=== PATIENT | male | born 1990 | race Caucasian/White ===

== ENCOUNTER 2020-06-25 09:52 | Emergency (ER) | payer OTHER ==
[2020-06-25 10:00] VITALS: RESP 18
--- NOTE | 2020-06-25 10:13 | ED ---
Male Urogenital HPI - General Chief complaint: Urogenital Stated complaint: Male , Swollen Time Seen by Provider: 06/25/20 10:07 Source: patient, family, RN notes reviewed Mode of arrival: ambulatory Limitations: no limitations - History of Present Illness Initial comments: This a 30-year-old male presents emergency department with chief complaint of scrotal swelling. Patient states started back in December has progressively worsened. He has no associated pain no dysuria no hematuria. Patient states that his never had anything like this in the past. Patient has no concerns for STD infection. Patient has no abdominal pain. Patient denies any trauma. - Related Data Home Medications Medication Instructions Recorded Confirmed No Known Home Medications 04/09/14 04/09/14 Allergies Allergy/AdvReac Type Severity Reaction Status Date / Time No Known Allergies Allergy Verified 06/25/20 10:00 Review of Systems ROS Statement: Those systems with pertinent positive or pertinent negative responses have been documented in the HPI. ROS Other: All systems not noted in ROS Statement are negative. Past Medical History Past Medical History: No Reported History History of Any Multi-Drug Resistant Organisms: None Reported Past Surgical History: Orthopedic Surgery Additional Past Surgical History / Comment(s): wrist, Right knee Past Psychological History: No Psychological Hx Reported Smoking Status: Never smoker Past Alcohol Use History: Daily Past Drug Use History: None Reported General Exam Limitations: no limitations General appearance: alert, in no apparent distress Head exam: Present: atraumatic, normocephalic, normal inspection Respiratory exam: Present: normal lung sounds bilaterally. Absent: respiratory distress, wheezes, rales, rhonchi, stridor Cardiovascular Exam: Present: regular rate, normal rhythm, normal heart sounds. Absent: systolic murmur, diastolic murmur, rubs, gallop, clicks GI/Abdominal exam: Present: soft, normal bowel sounds. Absent: distended, tenderness, guarding, rebound, rigid exam: Present: scrotal swelling (Significant swelling noted). Absent: normal inspection, testicular tenderness Back exam: Absent: CVA tenderness (R), CVA tenderness (L) Skin exam: Present: warm, dry, intact, normal color. Absent: rash Course Vital Signs 06/25/20 09:55 Temperature 98.7 F Pulse Rate 65 Respiratory 18 Rate Blood Pressure 121/81 O2 Sat by Pulse 100 Oximetry Medical Decision Making - Medical Decision Making 30-year-old male presented for scrotal swelling. All son reveals large right- sided hydrocele. Patient will follow-up with on-call urology. Return parameters were discussed. - Lab Data Lab Results 06/25/20 Range/Units 10:12 Urine Color Light Yellow Urine Appearance Clear (Clear) Urine pH 6.0 (5.0-8.0) Ur Specific Alder 1.011 (1.001-1.035) Urine Protein Negative (Negative) Urine Glucose (UA) Negative (Negative) Urine Ketones Negative (Negative) Urine Blood Negative (Negative) Urine Nitrite Negative (Negative) Urine Bilirubin Negative (Negative) Urine Urobilinogen <2.0 (<2.0) mg/dL Ur Leukocyte Esterase Negative (Negative) Disposition Clinical Impression: Hydrocele Disposition: HOME SELF-CARE Condition: Stable Instructions (If sedation given, give patient instructions): Hydrocele (ED) Additional Instructions: Please return to the Emergency Department if symptoms worsen or any other concerns. Is patient prescribed a controlled substance at d/c from ED?: No Referrals: Donaldo Gillis MD [Primary Care Provider] - 1-2 days Mayank Segal MD [STAFF PHYSICIAN] - 1-2 days Time of Disposition: 11:00
[2020-06-25 10:21] LABS: Appearance,Urine Clear (Clear); Bilirubin,Urine Negative (Negative); Blood,Urine Negative (Negative); Color,Urine Light Yellow; Glucose,Urine (UA) Negative (Negative); Ketones,Urine Negative (Negative); Leukocyte Esterase,Urine Negative (Negative); Nitrite,Urine Negative (Negative); Protein,Urine Negative (Negative); Specific Gravity,Urine 1.011 (1.001-1.035); Urobilinogen,Urine <2.0 mg/dL (<2.0)
--- NOTE | 2020-06-25 10:57 | US ---
EXAMINATION TYPE: US scrotum with doppler. Grayscale and color Doppler Duplex imaging performed of t he scrotum. DATE OF EXAM: 06/25/2020 COMPARISON: NONE CLINICAL HISTORY: swelling. right testicle swelling since December 2019, no pain, no injury EXAM MEASUREMENTS: TESTICLES: Right Testicle: 4.6 x 3.2 x 2.9 cm Left Testicle: 4.4 x 3.0 x 2.1 cm EPIDIDYMIS HEAD: Right Epididymis: unable to view due to large hydrocele Left Epididymis: 0.5 cm Doppler performed to assess for testicular vascularity; good bilateral color flow and waveforms are s een. There is no evidence of testicular torsion. Presence of hydroceles: yes severe on the right side Presence of varicoceles: possible lateral to left testicle IMPRESSION: 1. Large right hydrocele. 2. Normal-appearing blood flow bilateral testicles. 3. Left-sided varicoceles
[2020-06-25 11:11] VITALS: BP 123/84; PULSE 72; TEMP 98.4
== END 2020-06-25 11:11 | disposition home or self-care (01) ==
LOC: EC 09:52
DX: N43.3 Hydrocele, unspecified (principal)
CPT/HCPCS: 76870; 81003; 93975; 99284